=== PATIENT | female | born 1995 | race Caucasian/White ===

== ENCOUNTER 2020-01-25 16:44 | Emergency (ER) | payer BC, MEDICAID ==
[~2020-01-25] VITALS: Ht 147.3 cm; Wt 58.6 kg
[~2020-01-25 16:44] MED LIST: DOCO2CRE TOP
[2020-01-25 16:59] VITALS: BP 105/45
== END 2020-01-25 18:50 | disposition left against medical advice (07) ==
LOC: ER 16:44
DX: S89.90XA Unspecified injury of unspecified lower leg, initial encounter (principal); Z53.21 Procedure and treatment not carried out due to patient leaving prior to being seen by health care provider; X58.XXXA Exposure to other specified factors, initial encounter; Y93.89 Activity, other specified; Y92.89 Other specified places as the place of occurrence of the external cause; Y99.8 Other external cause status

== ENCOUNTER 2020-01-26 07:20 | Emergency (ER) | payer BC, MEDICAID ==
[~2020-01-26] VITALS: Ht 147.3 cm; Wt 56.0 kg
[2020-01-26 07:30] VITALS: BP 94/68
== END 2020-01-26 08:15 | disposition home or self-care (01) ==
LOC: ER 07:20
DX: M25.562 Pain in left knee (principal); F17.200 Nicotine dependence, unspecified, uncomplicated; Z72.89 Other problems related to lifestyle
CPT/HCPCS: 99281

== ENCOUNTER 2021-03-13 19:10 | Emergency (ER) | payer BC, MEDICAID ==
[~2021-03-13] VITALS: Ht 147.3 cm; Wt 59.1 kg
[2021-03-13 19:46] VITALS: BP 103/78
[2021-03-13 20:38] LABS: URINE HCG POSITIVE (NEG)
[2021-03-13 20:50] LABS: BASOPHILS % (AUTO) 0.8 % (0-1); EOSINOPHILS # (AUTO) 0.1 X10'3 (0-0.9); EOSINOPHILS % (AUTO) 1.2 % (0-6); HEMATOCRIT 38.5 % (35.0-45.0); HEMOGLOBIN 12.9 g/dl (12.0-16.0); LYMPHOCYTES # (AUTO) 1.6 X10'3 (1.1-4.8); LYMPHOCYTES % (AUTO) 28.6 % (21-51); MEAN CORPUSCULAR HEMOGLOBIN 29.4 PG (27.0-31.0); MEAN CORPUSCULAR HGB CONC 33.5 g/dL (33.0-36.5); MEAN PLATELET VOLUME 9.5 FL (7.4-10.4); MONOCYTES # (AUTO) 0.8 X10'3 (0-0.9); MONOCYTES % (AUTO) 14.2 % (2-12); NEUTROPHILS # (AUTO) 3.2 X10'3 (1.8-7.7); NEUTROPHILS % (AUTO) 55.2 % (42-75); PLATELET COUNT 241 X10'3 (140-440); RED BLOOD COUNT 4.37 X10'6 (4.20-5.60); RED CELL DISTRIBUTION WIDTH 13.6 % (11.5-14.5); WHITE BLOOD COUNT 5.7 X10'3 (4.5-11.0)
== END 2021-03-14 01:20 | disposition left against medical advice (07) ==
LOC: ER 19:12
DX: R10.31 Right lower quadrant pain (principal); Z53.21 Procedure and treatment not carried out due to patient leaving prior to being seen by health care provider
CPT/HCPCS: 36415; 76801; 81025; 84702; 85025; 86900; 86901; 99284

== ENCOUNTER 2021-04-08 16:07 | Emergency (ER) | payer BC, MEDICAID ==
[~2021-04-08] VITALS: Ht 147.3 cm; Wt 59.1 kg
[2021-04-08 16:37] VITALS: BP 111/68
== END 2021-04-08 17:55 | disposition left against medical advice (07) ==
LOC: ER 16:07
DX: M25.561 Pain in right knee (principal); Z53.21 Procedure and treatment not carried out due to patient leaving prior to being seen by health care provider

== ENCOUNTER 2021-04-08 19:59 | Emergency (ER) | payer BC, MEDICAID ==
[~2021-04-08] VITALS: Ht 147.3 cm; Wt 61.5 kg
[2021-04-08 20:39] VITALS: BP 117/79
== END 2021-04-09 00:35 | disposition home or self-care (01) ==
LOC: ER 19:59
DX: M25.561 Pain in right knee (principal); G89.29 Other chronic pain; M79.89 Other specified soft tissue disorders; F17.200 Nicotine dependence, unspecified, uncomplicated; F12.90 Cannabis use, unspecified, uncomplicated; Z72.89 Other problems related to lifestyle; Z79.899 Other long term (current) drug therapy
CPT/HCPCS: 93971; 99284

== ENCOUNTER 2021-10-02 14:46 | Outpatient (CLI) | payer BC, MEDICAID | END 2021-10-02 23:59 | disposition home or self-care (01) | LOC: RAD 14:46 | PROVIDERS: ATTEND Physician Assistant | DX: S83.402A Sprain of unspecified collateral ligament of left knee, initial encounter (principal); S83.252A Bucket-handle tear of lateral meniscus, current injury, left knee, initial encounter; S83.201A Bucket-handle tear of unspecified meniscus, current injury, left knee, initial encounter; S83.272A Complex tear of lateral meniscus, current injury, left knee, initial encounter; S83.412A Sprain of medial collateral ligament of left knee, initial encounter; S83.512A Sprain of anterior cruciate ligament of left knee, initial encounter; M23.42 Loose body in knee, left knee; X58.XXXA Exposure to other specified factors, initial encounter; Y93.89 Activity, other specified; Y92.89 Other specified places as the place of occurrence of the external cause; Y99.8 Other external cause status | CPT/HCPCS: 73721 ==

== ENCOUNTER 2021-11-09 07:26 | Day surgery (SDC) | payer BC, MEDICAID ==
[2021-11-02 14:54] LABS: BASOPHILS % (AUTO) 0.7 % (0-1); EOSINOPHILS % (AUTO) 0.2 % (0-6); LYMPHOCYTES # (AUTO) 1.7 X10'3 (1.1-4.8); MEAN CORPUSCULAR HEMOGLOBIN 28.7 PG (27.0-31.0); MEAN CORPUSCULAR HGB CONC 33.1 g/dL (33.0-36.5); MEAN CORPUSCULAR VOLUME 86.6 FL (78-98); MEAN PLATELET VOLUME 9.5 FL (7.4-10.4); MONOCYTES # (AUTO) 0.7 X10'3 (0-0.9); MONOCYTES % (AUTO) 11.3 % (2-12); NEUTROPHILS # (AUTO) 3.8 X10'3 (1.8-7.7); NEUTROPHILS % (AUTO) 60.8 % (42-75); PRE OP HEMATOCRIT 40.7 % (35.0-45.0); PRE OP HEMOGLOBIN 13.5 g/dL (12.0-16.0); PRE OP PLATELET COUNT 279 X10'3 (140-440); RED CELL DISTRIBUTION WIDTH 13.4 % (11.5-14.5)
[2021-11-02 15:03] LABS: HCG SERUM QL NEGATIVE
[2021-11-02 15:05] LABS: ALBUMIN/GLOBULIN RATIO 1.1 (1.1-1.5); ALKALINE PHOSPHATASE 93 IU/L (46-116); BLOOD UREA NITROGEN 8 MG/DL (7-18); BUN/CREATININE RATIO 11.8 (6.6-38.0); CALCIUM 8.5 MG/DL (8.5-10.1); CHLORIDE 107 MMOL/L (99-107); CREATININE 0.68 MG/DL (0.40-0.90); PRE OP ALT 18 U/L (30-65); PRE OP ANION GAP 8 (8-16); PRE OP AST 17 U/L (10-37); PRE OP BILIRUB, TOTAL 0.1 MG/DL (0.0-1.0); PRE OP GLUCOSE 82 MG/DL (70-104); PRE OP POTASSIUM 4.2 MMOL/L (3.4-5.1); PRE OP SODIUM 143 MMOL/L (135-145); TOTAL CARBON DIOXIDE 28.2 MMOL/L (24-32); TOTAL PROTEIN 7.8 G/DL (6.4-8.2); eGFR > 90 ML/MIN
[2021-11-09] VITALS (15 sets, daily range): BP systolic 98–135; BP diastolic 61–102
[~2021-11-09] VITALS: Ht 147.3 cm; Wt 57.9 kg
[~2021-11-09 07:26] MED LIST changes: -DOCO2CRE TOP; +NO HOME MEDS; +ceFAZolin inj. 2,000 MG in dextrose 5%-water 100 ML IV ONE; +famotidine 20mg tablet PO ONE; +ringers solution, lacted 1,000 ML IV SCH
[2021-11-09] MEDS ORDERED: ROPIVAcaine 0.5% (5mg/ml) 30ml vial ONE (09:38)
[2021-11-09] MEDS ORDERED: LIDOcaine 1% W/epiNEPHrine 1:100,000 20ml vial ONE (09:38)
[2021-11-09] MEDS ORDERED: sevoflurane 250ml liquid IH ONE (09:49)
[2021-11-09] MEDS ORDERED: midazolam 1 mg/ML 2ml injection ONE (09:53)
[2021-11-09] MEDS ORDERED: fentaNYL/PF 50MCG/1 ML 2ML syringe ONE ×2 (09:53→10:55)
[2021-11-09] MEDS ORDERED: BUPIVAcaine 0.5% inj/PF 30 ML ONE (10:36)
[2021-11-09] MEDS ORDERED: dexamethasone sod phosphate 4mg/ml inj. ONE (10:36)
[2021-11-09] MEDS ORDERED: propofol inj 20 ML IV ONE (10:36)
[2021-11-09] MEDS ORDERED: ringers solution, lacted 1,000 ML IV SCH (11:25)
[2021-11-09] MEDS ORDERED: morphine 2 MG/ML inj. syringe IV PRN (11:25)
[2021-11-09] MEDS ORDERED: proCHLORperazine 10 MG/2 ml inj IV PRN (11:25)
[2021-11-09] MEDS ORDERED: morphine 4 MG/ML inj SYRINge IV PRN (11:25)
[2021-11-09] MEDS ORDERED: meperidine/PF 25mg/ml syringe IV PRN ×2 (11:25)
[2021-11-09] MEDS ORDERED: ondansetron/PF 4mg/2ml inj IV PRN (11:25)
[2021-11-09] MEDS ORDERED: ondansetron/PF 4mg/2ml inj ONE (12:09)
[2021-11-09] MEDS ORDERED: acetaminophen 1,000mg/100ml IV 100 ML IV ONE (12:10)
--- NOTE | 2021-11-09 13:00 | NUR ---
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
[2021-11-09] MEDS: meperidine/PF 25mg/ml syringe IV PRN ×2 (13:21→13:55)
[2021-11-09] MEDS ORDERED: HYDROcodone/acetaminophen 10/325mg tab PO ONE (14:20)
--- NOTE | 2021-11-09 15:30 | NUR ---
PT DOING WELL, UP AND DRESSED, GIVEN EDUCATION AND PRACTICE WITH CRUTCHES EVEN ON STAIRS-PT TOLERATED WELL, PAIN BETTER 08/02, WAITING FOR RIDE FROM DAD
--- NOTE | 2021-11-09 15:50 | NUR ---
RIDE HERE, PAIN BETTER 08/02, NO CHANGES IN DRSG-BRACE LOCKED IN PLACE, D/C WITH CRUTCHES, DISCUSSED D/C INSTRUCTIONS WITH PT-ALL QUESTIONS ANSWERED, PIV D/CD-CANULA INTACT, PT TAKEN VIA W/C WITH ALL BELONGINGS TO [employer] FOR TRANSPORT HOME.
== END 2021-11-09 15:50 | disposition home or self-care (01) ==
LOC: PAS 07:26
PROVIDERS: ATTEND Orthopaedic Surgery
DX: S83.272A Complex tear of lateral meniscus, current injury, left knee, initial encounter (principal); S83.512A Sprain of anterior cruciate ligament of left knee, initial encounter; M94.262 Chondromalacia, left knee; F12.90 Cannabis use, unspecified, uncomplicated; Z72.89 Other problems related to lifestyle; G89.18 Other acute postprocedural pain; Z79.899 Other long term (current) drug therapy; X58.XXXA Exposure to other specified factors, initial encounter; Y93.89 Activity, other specified; Y92.89 Other specified places as the place of occurrence of the external cause; Y99.8 Other external cause status
CPT/HCPCS: 29881; 29888; 36415; 64447; 76942; 80053; 82948; 84703; 85025; C1713; J0131; J0690; J1100; J2175; J2250; J2270; J2405; J2704; J2795; J3010; J3490; J7030; J7060; J7120; L1832; S0020; Z7506; Z7508; Z7512; A4215; A4618; A6449; A7000

== ENCOUNTER 2023-07-17 20:50 | Emergency (ER) | payer BC, MEDICAID ==
[~2023-07-17] VITALS: Ht 160 cm; Wt 72.7 kg
[~2023-07-17 20:50] MED LIST changes: -ceFAZolin inj. 2,000 MG in dextrose 5%-water 100 ML IV ONE; -famotidine 20mg tablet PO ONE; -ringers solution, lacted 1,000 ML IV SCH
[2023-07-18] MEDS ORDERED: ACET-812 PO (02:02)
[2023-07-18] MEDS: ibuprofen tablet 400 MG TABLET PO ONE (02:02)
[2023-07-18] MEDS ORDERED: IBUP-1984 PO (02:02)
[2023-07-18] MEDS: HYDROcodone/acetaminophen 10/325mg tab PO ONE (02:02)
[2023-07-18 02:12] VITALS: BP 114/80; PULSE 76; RESP 16; O2SAT 96
== END 2023-07-18 02:15 | disposition home or self-care (01) ==
LOC: ER 20:50
DX: M79.604 Pain in right leg (principal); F12.10 Cannabis abuse, uncomplicated; Z79.899 Other long term (current) drug therapy
CPT/HCPCS: 93971; 99284

== ENCOUNTER 2024-08-12 19:28 | Emergency (ER) | payer BC, MEDICAID ==
[~2024-08-12] VITALS: Ht 147.3 cm; Wt 72.7 kg
[~2024-08-12 19:28] MED LIST changes: +ACET-812 PO
[2024-08-12 19:41] VITALS: BP 110/61; PULSE 82; RESP 16; O2SAT 99
[2024-08-12 20:28] LABS: BASOPHILS % (AUTO) 0.6 % (0-1); EOSINOPHILS # (AUTO) 0.1 X10'3 (0-0.9); EOSINOPHILS % (AUTO) 2.1 % (0-6); HEMATOCRIT 39.8 % (35.0-45.0); HEMOGLOBIN 13.1 g/dl (12.0-16.0); LYMPHOCYTES # (AUTO) 1.5 X10'3 (1.1-4.8); LYMPHOCYTES % (AUTO) 33.1 % (21-51); MEAN CORPUSCULAR HEMOGLOBIN 28.5 PG (27.0-31.0); MEAN CORPUSCULAR HGB CONC 32.9 g/dL (33.0-36.5); MEAN CORPUSCULAR VOLUME 86.7 FL (78-98); MEAN PLATELET VOLUME 8.9 FL (7.4-10.4); MONOCYTES # (AUTO) 0.5 X10'3 (0-0.9); MONOCYTES % (AUTO) 11.2 % (2-12); NEUTROPHILS # (AUTO) 2.5 X10'3 (1.8-7.7); PLATELET COUNT 236 X10'3 (140-440); RED BLOOD COUNT 4.59 X10'6 (4.20-5.60); RED CELL DISTRIBUTION WIDTH 13.6 % (11.5-14.5); WHITE BLOOD COUNT 4.7 X10'3 (4.5-11.0)
[2024-08-12 20:40] LABS: PROTHROMBIN TIME 10.7 SECONDS (9.0-12.0)
[2024-08-12 21:02] LABS: THYROID STIMULATING HORMONE 2.57 ulU/ml (0.34-4.50)
[2024-08-12 21:42] LABS: BETA HCG,QUANTITATIVE < 1.0 mIU/ml
[2024-08-12] MEDS ORDERED: MEDR5TAB4 PO (22:33)
[2024-08-12] MEDS: medroxyprogesterone acet. 2.5mg tablet PO ONE (23:04)
[2024-08-12 23:06] VITALS: TEMP 98.1
== END 2024-08-12 23:08 | disposition home or self-care (01) ==
LOC: ER 19:28
DX: N93.8 Other specified abnormal uterine and vaginal bleeding (principal)
CPT/HCPCS: 36415; 76856; 84443; 84702; 85025; 85610; 99284